=== PATIENT | female | born 1965 | race Caucasian/White ===

== ENCOUNTER 2020-10-04 18:16 | Emergency (ER) | payer OTHER ==
[~2020-10-04] VITALS: Ht 149.9 cm; Wt 57.0 kg
[~2020-10-04 18:16] MED LIST: OTC DECONGESTANT
[2020-10-04 22:09] LABS: BASOPHILS % (AUTO) 1 % (0-1); EOSINOPHILS % (AUTO) 0 % (1-7); LYMPHOCYTES % (AUTO) 6 % (22-44); MEAN CORPUSCULAR HEMOGLOBIN 30.2 pg (27.0-34.8); MEAN CORPUSCULAR HGB CONC 33.8 g/dL (32.4-35.8); MEAN PLATELET VOLUME 8.7 fL (7.4-10.4); MONOCYTES % (AUTO) 5 % (2-9); NEUTROPHILS % (AUTO) 88 % (42-75); PLATELET COUNT 268 x10^3/uL (130-400); RED BLOOD COUNT 5.22 x10^6/uL (3.82-5.3)
[2020-10-04 22:15] LABS: ALBUMIN 3.8 g/dL (3.4-5.0); ANION GAP 7 mmol/L (5-15); CALCIUM 11.1 mg/dL (8.5-10.1); CHLORIDE 109 mmol/L (98-107)
[2020-10-04 22:16] LABS: CREATININE 1.14 mg/dL (0.55-1.02)
[2020-10-04 22:31] LABS: MD SCAN
--- NOTE | 2020-10-04 23:05 | NUR ---
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
[2020-10-04] MEDS ORDERED: OMNIPAQUE 350 MG/ML, 100ML BOTTLE ONE (23:24)
[2020-10-04] MEDS ORDERED: SODIUM CHLORIDE 0.9% 1,000ML IVBOLUS ONE (23:30)
[2020-10-04] MEDS ORDERED: MORPHINE SULFATE 4 MG/ML, 1ML IVPush PRN (23:30)
[2020-10-04] MEDS ORDERED: ONDANSETRON 2MG/ML, 2ML IVPush ONE (23:30)
[2020-10-05] MEDS ORDERED: ONDANSETRON 2MG/ML, 2ML ONE (00:56)
[2020-10-05] MEDS ORDERED: MORPHINE SULFATE 4 MG/ML, 1ML ONE (00:56)
--- NOTE | 2020-10-05 01:16 | NUR ---
PT AT CT
[2020-10-05 01:23] LABS: MICROSCOPIC INDICATED
--- NOTE | 2020-10-05 01:39 | NUR ---
PT BACK FROM CT
[2020-10-05] MEDS ORDERED: KETOROLAC 30 MG/1 ML IVPush ONE (02:30)
[2020-10-05] MEDS ORDERED: KETOROLAC 30 MG/1 ML ONE (02:41)
--- NOTE | 2020-10-05 03:16 | NUR ---
Break RN: re-evaluation done. patient discharged with prescriptions and instruction. verbalized understanding.
[2020-10-05 03:17] VITALS: BP 129/78
== END 2020-10-05 03:20 | disposition home or self-care (01) ==
LOC: ED 23:59
DX: N13.2 Hydronephrosis with renal and ureteral calculous obstruction (principal); M54.5 Low back pain; R11.2 Nausea with vomiting, unspecified; E78.00 Pure hypercholesterolemia, unspecified; E78.5 Hyperlipidemia, unspecified; Z90.49 Acquired absence of other specified parts of digestive tract; Z90.710 Acquired absence of both cervix and uterus
CPT/HCPCS: 36415; 74177; 80048; 81001; 82040; 85025; 87086; 96361; 96374; 96375; 99284; J1885; J2270; J2405; J7030; Q9967

== ENCOUNTER 2020-10-06 12:28 | Inpatient (IN) | payer OTHER ==
[~2020-10-06] VITALS: Ht 149.9 cm; Wt 64.5 kg
--- NOTE | 2020-10-06 13:38 | NUR ---
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
[2020-10-06] MEDS ORDERED: ONDANSETRON 2MG/ML, 2ML IVPush ONE (14:00)
[2020-10-06] MEDS ORDERED: HYDROmorphone 1 MG/ML, 1ML INJ IV ONE (14:00)
[2020-10-06] MEDS ORDERED: KETOROLAC 30 MG/1 ML IVPush ONE (14:00)
[2020-10-06] MEDS ORDERED: SODIUM CHLORIDE FLUSH 10ML SYR IVF ONE (14:00)
[2020-10-06] MEDS ORDERED: SODIUM CHLORIDE 0.9% 1,000ML IV ONE (14:00)
[2020-10-06] MEDS ORDERED: KETOROLAC 30 MG/1 ML ONE (14:08)
[2020-10-06] MEDS ORDERED: HYDROmorphone 1 MG/ML, 1ML INJ ONE (14:08)
[2020-10-06] MEDS ORDERED: ONDANSETRON 2MG/ML, 2ML ONE ×2 (14:08→19:00)
[2020-10-06 14:20] LABS: BASOPHILS % (AUTO) 1 % (0-1); EOSINOPHILS % (AUTO) 0 % (1-7); LYMPHOCYTES % (AUTO) 11 % (22-44); MEAN CORPUSCULAR HEMOGLOBIN 29.6 pg (27.0-34.8); MEAN CORPUSCULAR HGB CONC 33.2 g/dL (32.4-35.8); MEAN PLATELET VOLUME 8.5 fL (7.4-10.4); MONOCYTES % (AUTO) 9 % (2-9); NEUTROPHILS % (AUTO) 79 % (42-75); PLATELET COUNT 252 x10^3/uL (130-400); RED BLOOD COUNT 4.92 x10^6/uL (3.82-5.3)
[2020-10-06 14:25] LABS: ALANINE AMINOTRANSFERASE 81 U/L (12-78); ALBUMIN 3.6 g/dL (3.4-5.0); ANION GAP 7 mmol/L (5-15); CALCIUM 10.4 mg/dL (8.5-10.1); CHLORIDE 107 mmol/L (98-107); CREATININE 1.18 mg/dL (0.55-1.02)
[2020-10-06 14:27] LABS: ALKALINE PHOSPHATASE 109 U/L (45-117); TOTAL PROTEIN 8.4 g/dL (6.4-8.2)
[2020-10-06 14:33] LABS: MD SCAN
--- NOTE | 2020-10-06 15:03 | NUR ---
PT DENIES PAIN AT THIS TIME. VSS, IVF INFUSING W/O DIFFICULTY.
--- NOTE | 2020-10-06 15:27 | NUR ---
STRAIGHT CATH COMPLETED W/O DIFFICULTY. URINE WALKED TO LAB
[2020-10-06 15:42] LABS: MICROSCOPIC INDICATED
[2020-10-06] MEDS ORDERED: CEFTRIAXONE 1,000 MG in DEXTROSE 5% 50 ML IVPB ONE (16:30)
--- NOTE | 2020-10-06 16:33 | NUR ---
DR DE DIOS AT BEDSIDE, TEST RESULTS AND PLAN FOR ADMIT DISCUSSED WITH PT AND QUESTIONS ANSWERED.
--- NOTE | 2020-10-06 16:35 | NUR ---
BC X 2 COLLECTED. ANTIBIOTIC INFUSING NOTED W/O DIFFICULTY
[2020-10-06] MEDS ORDERED: SODIUM CHLORIDE FLUSH 10ML SYR IVF PRN (17:00)
[2020-10-06] MEDS ORDERED: SODIUM CHLORIDE 0.9% 1,000 ML IV ONE ×2 (17:00)
[2020-10-06] MEDS ORDERED: DOCUSATE 100 MG CAPSULE PO PRN (17:30)
[2020-10-06] MEDS ORDERED: ONDANSETRON 2MG/ML, 2ML IVPush PRN ×2 (17:30→19:00)
[2020-10-06] MEDS ORDERED: HYDROmorphone 2 MG/ML, 1ML IVPush PRN (17:30)
[2020-10-06] MEDS ORDERED: MIDAZOLAM 1 MG/ML, 2ML ONE (18:26)
[2020-10-06] MEDS ORDERED: FENTANYL PF 100 MCG/2ML ONE (18:26)
[2020-10-06] MEDS ORDERED: OMNIPAQUE 350 MG/ML, 50 ML BOTTLE ONE (18:47)
[2020-10-06] MEDS ORDERED: METHOCARBAMOL 1,000 MG in DEXTROSE 5% 100 ML IV PRN (19:00)
[2020-10-06] MEDS ORDERED: OXYcodone 5 MG/5 ML ORAL.SOL UDC PO PRN (19:00)
[2020-10-06] MEDS ORDERED: MEPERIDINE/PF 25MG/0.5ML IVPush PRN (19:00)
[2020-10-06] MEDS ORDERED: ACETAMINOPHEN 325 MG TABLET PO PRN (19:00)
[2020-10-06] MEDS ORDERED: PROMETHAZINE 25 MG SUPP PR PRN (19:00)
[2020-10-06] MEDS ORDERED: HYDROmorphone 1 MG/ML, 1ML INJ IVPush PRN (19:00)
[2020-10-06] MEDS ORDERED: FENTANYL PF 100 MCG/2ML IV PRN (19:00)
[2020-10-06] MEDS ORDERED: PROMETHAZINE 25 MG/ML, 1ML IVPush PRN (19:00)
[2020-10-06] MEDS ORDERED: PROPOFOL 10 MG/ML, 20ML ONE (19:00)
[2020-10-06] MEDS ORDERED: CEFAZOLIN 1,000 MG ONE (19:00)
[2020-10-06] MEDS ORDERED: DEXAMETHASONE 4 MG/ML, 1ML ONE (19:00)
[2020-10-06] MEDS ORDERED: LORazepam 2 MG/ML, 1ML IVPush PRN (19:00)
[2020-10-06] MEDS ORDERED: ACETAMINOPHEN 650 MG/20.3 ML UDC ONE (19:44)
[2020-10-06] MEDS ORDERED: OXYcodone 5 MG/5 ML ORAL.SOL UDC ONE (19:45)
[2020-10-06] MEDS: ACETAMINOPHEN 325 MG TABLET PO PRN (19:46)
[2020-10-06] MEDS ORDERED: KETOROLAC 30 MG/1 ML IV PRN (20:00)
[2020-10-06 20:14] VITALS: BP 139/81
[2020-10-06] MEDS ORDERED: MELATONIN 5 MG TABLET PO PRN (21:00)
[2020-10-06] MEDS: LACTATED RINGERS 1,000 ML IV SCH (23:04)
[2020-10-07 01:44] VITALS: BP 115/55
[2020-10-07 05:11] LABS: BASOPHILS % (AUTO) 1 % (0-1); EOSINOPHILS % (AUTO) 0 % (1-7); LYMPHOCYTES % (AUTO) 9 % (22-44); MEAN CORPUSCULAR HEMOGLOBIN 29.7 pg (27.0-34.8); MEAN CORPUSCULAR HGB CONC 33.3 g/dL (32.4-35.8); MONOCYTES % (AUTO) 4 % (2-9); NEUTROPHILS % (AUTO) 87 % (42-75); PLATELET COUNT 209 x10^3/uL (130-400); RED BLOOD COUNT 4.19 x10^6/uL (3.82-5.3); RED CELL DISTRIBUTION WIDTH 13.6 % (9.6-15.2)
[2020-10-07 05:13] LABS: MD NO
[2020-10-07 05:21] LABS: ALANINE AMINOTRANSFERASE 57 U/L (12-78); ALBUMIN 2.9 g/dL (3.4-5.0); ANION GAP 6 mmol/L (5-15); CALCIUM 9.8 mg/dL (8.5-10.1); CHLORIDE 107 mmol/L (98-107); CREATININE 0.83 mg/dL (0.55-1.02)
[2020-10-07 05:23] LABS: ALKALINE PHOSPHATASE 87 U/L (45-117); BILIRUBIN,TOTAL 0.4 mg/dL (0.2-1.0); TOTAL PROTEIN 7.2 g/dL (6.4-8.2)
[2020-10-07 06:55] VITALS: BP 146/76
[2020-10-07] MEDS ORDERED: CEFTRIAXONE 1,000 MG in DEXTROSE 5% 50 ML IVPB SCH (09:30)
[2020-10-07] MEDS: ACETAMINOPHEN 325 MG TABLET PO PRN (10:42)
[2020-10-07 12:35] VITALS: BP 121/70
[2020-10-07] MEDS ORDERED: CHOLECALCIFEROL 5,000u TAB PO SCH (13:00)
[2020-10-07] MEDS: LACTATED RINGERS 1,000 ML IV SCH (15:59)
[2020-10-07 16:02] VITALS: BP 127/65
[2020-10-07] MEDS ORDERED: CEFD300C37 PO (16:13)
== END 2020-10-07 16:50 | disposition home or self-care (01) | DRG 661 ==
LOC: ED 16:28 → EDIP 16:53 → SUATTDRO 16:54 → 3N 20:12 → 4NE 22:37 → DCLOUNGE 10-07 16:34
PROVIDERS: ADMIT Hospitalist; ATTEND Hospitalist
PROC: 0T9B70Z Drainage of Bladder with Drainage Device, Via Natural or Artificial Opening (ICD-10-PCS; 2020-10-06)
PROC: 0T768DZ Dilation of Right Ureter with Intraluminal Device, Via Natural or Artificial Opening Endoscopic (ICD-10-PCS; principal; 2020-10-06 17:30)
DX: N13.6 Pyonephrosis (principal); E78.5 Hyperlipidemia, unspecified; E83.52 Hypercalcemia; Z80.1 Family history of malignant neoplasm of trachea, bronchus and lung; Z82.3 Family history of stroke; Z87.442 Personal history of urinary calculi; Z90.710 Acquired absence of both cervix and uterus; Z20.822 Contact with and (suspected) exposure to COVID-19; Z90.49 Acquired absence of other specified parts of digestive tract; Z85.6 Personal history of leukemia
CPT/HCPCS: 36415; 71045; 74420; 76770; 78070; 80053; 81001; 82306; 83036; 83605; 83735; 83970; 84100; 84443; 85025; 87040; 87086; 87635; 93005; 96365; 96375; C1726; G0378; J0690; J0696; J1100; J1170; J1885; J2250; J2405; J2704; J3010; Q9967; A9500; C1758; C2617; J7030; J7120